=== PATIENT | male | born 1945 | race Caucasian/White ===

== ENCOUNTER 2017-01-25 08:18 | Emergency (ER) | payer MEDICARE, BC ==
[2017-01-25] MEDS ORDERED: MORPHINE SULFATE 4 MG/ML SYRG IM ONE (08:35)
[2017-01-25] MEDS ORDERED: MORPHINE SULFATE 4 MG/ML SYRG ONE (08:39)
--- NOTE | 2017-01-25 08:42 | ERNOTE ---
Lower Extremity HPI - Narrative Date of Service: 01/25/17 - General Lower Extremities Pain: knee: left Time Seen by Provider: 01/25/17 08:29 Source: patient Exam Limitations: no limitations - Immun/Allergies/Home Medications Immunizations: IMMUNIZATION HX Immunizations Up to Date Yes History of Influenza Vaccine No Hx Pneumococcal Vaccination No Allergies/Adverse Reactions: Allergies Allergy/AdvReac Type Severity Reaction Status Date / Time No Known Allergies Allergy Unverified 07/17/15 05:29 Home Medications: HOME MEDICATIONS HYDROcodone/ACETAMINOPHEN [[place] 5-325] 1 each PO Q8H PRN #12 tablet 01/25/17 [ Last Taken Unknown] Omeprazole [Prilosec] 20 mg PO DAILY 01/25/17 [Last Taken Unknown] - History of Present Illness Narrative: Patient presents to the ED for left knee pain. He was walking on Monday and his knee twisted and he heard a "pop". He had pain in the knee and it has gradually worsened since then. No fever. no N/T/W. Hurts to bend it. Once it is straightened it is better but hurts to walk on it. No other injuries. no hip pain. No other compaints. Right now moderate pain. Occurred: other - Monday, 4 days ago Method of Injury: Reports: twisted Loss of Consciousness: Reports: no loss of consciousness Modifying Factors - (Improves): Reports: rest Modifying Factors - (Worsens): Reports: other - bending and walking Associated Symptoms: Reports: popping sensation. Denies: unable to bear weight , weakness Other Injuries: Reports: none Subsequent Symptoms: Denies: sensory loss, numbness, motor loss Prior Treament: Denies: recently seen Review of Systems - Review of Systems Constitutional: Absent: fever Respiratory: Absent: shortness of breath Cardiology: Absent: chest pain Gastrointestinal/Abdominal: Absent: abdominal pain Musculoskeletal: Present: See HPI Skin: Present: other - recent rash on feet seen at [facility] and started on apparent antifungal Neurological: Absent: weakness - Patient's Past Medical History Patient History - Medical: Arthritis, Other Patient History - Cardiac/Respiratory: No pertinent hx Patient History - Cancer: No Hx of Cancer Patient History - Surgical Procedures: Colonoscopy, EGD, Other Patient History - Other: None - Social History Living Situations: home Psych History: No pertinent hx Smoking Status: Never smoker - Immunizations Immunizations Up to Date: Yes Hx Pneumococcal Vaccination: No History of Influenza Vaccine: No Physical Exam - Physical Exam General Appearance: Present: alert, no apparent distress Head Exam: Present: normal inspection Eye Exam: Normal inspection: bilateral Ears, Nose, Throat: Present: normal ENT inspection Neck: Present: normal inspection Respiratory: Present: no respiratory distress, normal breath sounds Cardiovascular/Chest: Present: regular rate, rhythm, normal peripheral pulses Back Exam: Present: normal range of motion Extremity Exam: Present: other - No left hip tenderness. Mild lateral left knee tenderness. Joint effusion noted. No apparnet pattellar tendon injury. No redness or warmth. No gross instability but exam limited by pain. No distal tenderness. Foot warm and well perfused. No suggestion of compartment syndrome or septic arthritis. Neurological Exam: Present: alert, normal mood/affect, no motor/sensory deficits , other - walks wit a cane Skin Exam: Present: normal color, warm/dry, other - no cellulitis ED Progress - Vital Signs Patient's Vital Signs:: I have reviewed the patient's vital signs. Vital Signs: Vital Signs 01/25/17 08:23 Temperature 36.8 C Pulse Rate 102 H Respiratory 16 Rate Blood Pressure 136/83 O2 Sat by Pulse 94 Oximetry - X-Ray X-Ray #1 X-Ray: knee Interpretation: Interp. by me X-ray Comments: I reviewed official x-ray report. - Progress/Reassessment Chief Complaint: Lower Extremity Pain/ Injury Progress Note-Subjective: 01/25/17 09:25 Patient has no findings of septic arthritis or infectious process. I spoke with Dr Cruz, he recommends knee immobilizer and follow-up. He has appt tomorrow with ortho at 1015am. He is agreeable to the plan. I discussed warning signs and reasons to return as well as the need for close f/u. Departure Clinical Impression: Knee injury - Departure Disposition: Home self-care Condition: Stable Instructions: Knee Pain Additional Instructions: Knee immobilizer as directed. You have an appointment with Dr Larios tomorrow at 10:15 am. No driving with pain medication. Ice. Elevation. Return here for fever, redness, increased pain or if your condition worsens or changes in any way. Referrals: Jack Carnes PAC [Primary Care Provider] - Prescriptions: HYDROcodone/ACETAMINOPHEN [[place] 5-325] 1 each PO Q8H PRN #12 tablet PRN Reason: Pain
[2017-01-25 09:07] VITALS: BP 135/86
== END 2017-01-25 09:30 | disposition home or self-care (01) ==
LOC: ER 08:18
PROC: 2W3MX1Z Immobilization of Left Lower Extremity using Splint (ICD-10-PCS; principal; 2017-01-25)
DX: S89.92XA Unspecified injury of left lower leg, initial encounter (principal); X50.1XXA Overexertion from prolonged static or awkward postures, initial encounter; Y93.01 Activity, walking, marching and hiking

== ENCOUNTER 2017-03-08 06:46 | Inpatient (IN) | payer MEDICARE, BC ==
[~2017-03-08 06:46] MED LIST: MORPHINE SULFATE 15 MG TABLET.SA PO PRN; RINGER'S SOLUTION,LACTATED 1,000 ML IV PRN; ROPIVACAINE HCL/PF 100 MG, KETOROLAC TROMETHAMINE 30 MG, EPINEPHrine 0.2 MG in NORMAL S... IJ PRN; TRANEXAMIC ACID 1,000 MG in NORMAL SALINE 100 ML IV PRN; ceFAZolin SODIUM 1 GM VIAL IV PRN
[2017-03-08] MEDS ORDERED: LORazepam 2 MG/ML DISP.SYRIN IV ONE (08:15)
--- NOTE | 2017-03-08 09:16 | PREOP NOTE ---
Preoperative Progress Note - Preoperative Changes Changes to Preop Condition?: No Changes
--- NOTE | 2017-03-08 09:20 | PN ---
Subjective - Date and Time Seen Date: 03/08/17 Time: 08:15 Subjective Narrative: laying in bed. anxious about upcoming surgery today. asked pt etoh use, pt states "3-5 beers a day since [place].". Pleasant and cooperative. mild tremor noted. last etoh on monday afternoon 03/06/17. Objective - Review of Systems Generalized/Overall Review: Reports: No Symptoms Reported EENTM: Reports: No Symptoms Reported Respiratory: Reports: No Symptoms Reported Cardiac: Reports: No Symptoms Reported Abdominal: Reports: No Symptoms Reported Genitourinary Symptoms: Reports: No Symptoms Reported Musculoskeletal Complaints: Reports: No Symptoms Reported Neurological: Reports: Anxiety Skin: Reports: No Symptoms Reported Endocrine: Reports: No Symptoms Reported Misc: All systems neg except as marked - Vitals Vitals: Last Vital Signs Temp 36.7 C 03/08/17 07:05 Pulse 96 03/08/17 07:05 Resp 18 03/08/17 07:05 BP 142/87 03/08/17 07:05 Pulse Ox 98 03/08/17 07:05 - Exam Constitutional: Present: Alert, Oriented x3, Cooperative ENT Exam: Present: hearing grossly normal Neck: Present: supple Breasts: Present: Exam deferred Respiratory: Present: lungs clear, normal breath sounds Cardiovascular/Chest: Present: normal peripheral pulses, regular rate, rhythm, no chest tenderness Abdomen: Present: soft, nontender, nondistended /Rectal: Present: Exam deferred Extremity: Present: non-tender, normal inspection Skin Exam: Present: warm/dry, no cyanosis, pallor Cauti Physician Documentation - Urinary Catheter Management Urethral (Rees) Date of Insertion: 03/08/17 Time of Insertion: 10:15 Assessment/Plan Plan Narrative: Plan for left total knee today. Ortho following, appreciate their help. will order etoh withdrawal protocol post op. anesthesia / surgeon notified of etoh abuse. use ativan post op as needed for any s/s of withdrawal. this was discussed with patient and his family. monitor closely post op. - Problems/Diagnosis (1) DJD (degenerative joint disease) of knee Problem: Chronic Qualifiers: Osteoarthritis type: unspecified Laterality: left Qualified Code(s): M17.12 - Unilateral primary osteoarthritis, left knee (2) ETOH abuse Problem: Chronic (3) GERD (gastroesophageal reflux disease) Problem: Chronic Qualifiers: Esophagitis presence: esophagitis presence not specified Qualified Code(s) : K21.9 - Gastro-esophageal reflux disease without esophagitis
[2017-03-08] MEDS ORDERED: RINGER'S SOLUTION,LACTATED 1,000 ML IV ONE ×2 (09:50→10:45)
[2017-03-08] MEDS ORDERED: HYDROmorphone HCL 1 MG/ML DISP.SYRIN IV PRN (11:59)
[2017-03-08] MEDS ORDERED: ONDANSETRON HCL/PF 2 MG/ML VIAL IV PRN (11:59)
[2017-03-08] MEDS ORDERED: MAGNESIUM HYDROXIDE 30 ML UDC PO PRN (11:59)
[2017-03-08] MEDS ORDERED: MAG HYDROX/ALUMINUM HYD/SIMETH 30 ML UDC PO PRN (11:59)
[2017-03-08] MEDS ORDERED: PROMETHAZINE HCL 5 MG in DEXTROSE 5 % IN WATER 50 ML IV PRN ×2 (11:59)
[2017-03-08] MEDS ORDERED: ACETAMINOPHEN 500 MG TABLET PO PRN (11:59)
[2017-03-08] MEDS ORDERED: DEXTROSE 5%-LACTATED RINGERS 1,000 ML IV PRN (11:59)
[2017-03-08] MEDS ORDERED: diphenhydrAMINE HCL 50 MG/ML VIAL IV PRN (11:59)
[2017-03-08] MEDS ORDERED: ZOLPIDEM TARTRATE 5 MG TABLET PO PRN (11:59)
[2017-03-08] MEDS ORDERED: CLOTRIMAZOLE/BETAMET DIPROP 15 APPL TUBE TP PRN (12:00)
[2017-03-08] MEDS ORDERED: ENOXAPARIN SODIUM 40 MG/0.4 ML SYRG SC SCH (12:15)
--- NOTE | 2017-03-08 12:15 | OR ---
Operative Report - Dictated Report Narrative: Date: 03/08/2017 Preoperative diagnosis: Left Knee degenerative joint disease. Postoperative diagnosis: Left Knee degenerative joint disease. Procedure: Left Total knee arthroplasty. Surgeon: Mazin Larios M.D. Horser Up: Jack Carnes PA-C Anesthesia: Spinal with regional block and local periarticular joint injection. Complications: None Specimens: Bone for disposal. Estimated blood loss: Minimal. Tourniquet time: 90 Minutes at 325 millimeters of mercury. Retained implants: Depuy Attune size 8 left lugged cemented posterior stabilized femoral component. Size 8 fixed-bearing cemented tibial platform. 8 by 6 millimeter posterior stabilized cross-linked tibial insert. 38 millimeter medialized patella button. Indications: Mr. Colon is a 72-year-old gentleman who has had long-standing left knee pain and arthrosis. This patient was followed in my clinic for period of time with significant complaints of left knee pain consistent with arthritic changes. He had failed conservative measures including, but not limited to, activity modification, passage of time, medications, and other conservative measures. Patient wished to proceed with surgical treatment. The risks, benefits, and alternatives were discussed in clinic. The risks of , blood clots, bleeding, infection, nerve/tendon blood vessel/ injury, malposition of components, intraoperative fracture, postoperative limited range of motion, persistent pain, failure of components, and need for additional procedures. Patient wished to proceed consent was obtained after answering all questions. Procedure: After marking the correct extremity on the floor, the patient was taken to the operating room. A timeout was performed. IV antibiotics consisting of Ancef were administered prior to the procedure. A regional followed by spinal anesthetic was induced by anesthesia, per my request, on the operative table with all bony prominences well-padded. Rees catheter was placed, and a bump was placed under the operative side buttock. SCDs and MARISOL hose were utilized on the nonoperative leg. A well-padded tourniquet was applied to the operative thigh. The operative leg was then pre-scrubbed with alcohol prepped, and draped in a standard sterile fashion. After exsanguinating the extremity with an Esmarch bandage, the tourniquet was inflated. After marking out the anterior knee for standard incision centered over the patella, the skin was incised and dissected down to the joint retinaculum. The joint retinaculum was marked out as well as the horizontal axis of the patella, and a standard medial parapatellar arthrotomy was then made. The most proximal aspect of the quadriceps tendon and the patella tendon insertion were protected from release. A partial synovectomy was performed as well as a resection of the infrapatellar fat pad. The distal femoral fat pad proximal to the trochlea was also resected using cautery. The soft tissues were elevated off the medial aspect of the proximal tibia using a Minor elevator ensuring that we did not transect the medial collateral ligament. Upon initial evaluation range of motion was approximately 10 degrees to 120 degrees of flexion. There were signs of advanced arthrosis in the medial, lateral, and patellofemoral joint spaces. There were large marginal osteophytes which were removed with a rongeur. The knee was hyperflexed and the patella was tucked laterally. Protecting the surrounding soft tissues with Homans, an entry drill was placed down the femoral canal using Whitesides line for guidance into the entry point. The intramedullary femoral alignment darvin was utilized in order to cut the distal femur in 5 degrees of valgus resecting 10 millimeters of bone. Next the distal femur was sized to a size 8. A posterior referencing guide was utilized to place the distal femoral cutting block in 3 degrees of external rotation. This was pinned into place. The rotation was confirmed both visually and based on anatomic landmarks. The 4 in 1 cutting jig of the appropriate size was utilized in order to make all bony cuts. The angle wing was used to ensure no notching. Retractors were utilized in order to protect surrounding soft tissues. This cut did not result in any excessive notching. We then cut the box centered over the distal femur. This allowed for resection of the anterior and posterior cruciate ligaments. I then turned my attention to the preparation of the tibia. Using an extra medullary tibial alignment darvin, 1 millimeters of bone was resected off the medial articular surface. This was made perpendicular to the mechanical axis of the joint with the alignment darvin centered over the ankle mortise. The alignment darvin was checked and was noted to be parallel to the mechanical axis, centered over the medial one third of the tibial tubercle, paralleling the anterior surface of the tibia. We then turned our attention to the remaining meniscus and soft tissues. These were removed while protecting the surrounding ligaments and soft tissues. The marginal osteophytes off the anterior, posterior, medial, lateral aspects of the femur and tibia were removed. The tibia was sized out to a size 8. Next the tibia was drilled and punched in an externally rotated position. Next the trial femur and a series of tibial inserts were utilized in order to allow for full extension and maximal flexion. It was found that a 6 millimeter insert gave the best range of motion and stability at multiple flexion points as well as at full extension there was less than 2 mm of gapping both medially and laterally. There is minimal anterior translation with the knee at 90 degrees of flexion and no signs of being able to dislocate the knee. The patella was then prepared. The initial thickness was 25 millimeters. This was reamed down to 15 millimeters parallel to the anterior surface of the patella. It was sized out to a size 38 medialized patella button. This was then drilled and trialed. Without any medial restraint the patella tracked appropriately and did not sublux or dislocate. At this point, it was felt these were the appropriate sized implants, and all trials were removed. The standard periarticular joint injection consisting of ropivacaine, Toradol, and epinephrine were injected into the periarticular joint tissues. The bony surfaces were thoroughly irrigated with a pulsatile- suction saline irrigation device. A bone plug from the prior resected anterior chamfer cut was placed into the drill hole at the distal femur. The bony surfaces were then dried in preparation for placement of the implants. The cement was vacuum mixed per the sap technical developer's instructions. The cement was placed on the dry bony surfaces and posterior aspect of the implants. The implants were impacted into place, removing all extruded cement. At this point anesthesia administered tranexamic acid per protocol intravenously. The knee was placed in extension with axial loading with the trial insert while the cement cured. Once the cement cured, all remaining extruded cement was removed. The knee was placed through a range of motion with the trial insert to ensure appropriate range of motion and stability. Final range of motion was approximately 0 to 120 degrees. The knee was again thoroughly irrigated with pulsatile saline lavage. The final polyethylene insert was then impacted into place ensuring no retained soft tissues. The remaining periarticular joint injection was injected. A medium Hemovac drain was placed exiting superior laterally. The knee was then placed over a triangle and the arthrotomy was closed with interrupted #1 Vicryl after thoroughly irrigating the joint. The deep and subcutaneous tissues were closed with interrupted 0 and 3-0 Vicryl respectively. Skin was closed with a running subcutaneous 3-0 Monocryl and Prineo Dermabond dressing. 4 x 4's, Sof-Rol, and a full leg Monty wrap were applied. All sponge, needle, blade, and instrument counts were correct prior to closing the wounds. Postoperative condition: The patient was awoken and transferred to the postanesthesia care unit in stable condition. Plan is to be admitted to the inpatient medical/surgical floor postoperatively for 24 hours of IV antibiotics , physical therapy, occupational therapy, and medical comanagement. Patient will be weightbearing as tolerated with range of motion as tolerated. DVT prophylaxis will be with SCDs, MARISOL hose, and pharmacological anticoagulation. Anticipated hospital stay is approximately 2-4 days.
--- NOTE | 2017-03-08 12:25 | OR ---
Anesthesia Procedure Note - Anesthesia Procedure Note Date of Service: 03/08/17 Narrative: Vital Signs - Last Taken Temp 36.3 C L 03/08/17 12:15 Pulse 78 03/08/17 12:15 Resp 14 03/08/17 12:15 BP 116/76 03/08/17 12:15 Pulse Ox 97 03/08/17 12:15 O2 Oxygen Delivery Method Room Air 03/08/17 12:23 ANESTHESIA PROCEDURE NOTE Date of Procedure: 03/08/2017. Time of procedure: 949. Performed by: Charlie Ruiz CRNA Research Program Assistant: None. Preprocedure diagnosis: Left total knee arthroplasty. Post procedure diagnosis: Same. Procedure: Left ultrasound guided femoral block for postoperative analgesia. Indications: The patient is a 72 -year-old male who is consulted for a left ultrasound-guided femoral nerve block for postoperative analgesia related to left total knee arthroplasty. Findings: See below. Details of the procedure: The tissue over the intended target site was cleansed with ChloraPrep. 1 ml Lidocaine 1 % was infiltrated to the skin and subcutaneous tissue. Under sterile technique and ultrasound guidance a 21-gauge block needle was inserted anterior to the left femoral nerve . 30 mL's of 0.5% bupivacaine plus epinephrine 1 200,000 was injected after negative aspiration for blood. Spread of local anesthetic surroundind the femoral nerve was observed throughout the injection with ultrasound. The needle was removed intact. No complications were noted. The images were retained in the Hospital medical database . EBL: Minimal. Fluids: N/A. Specimen: N/A. Post procedure condition: The patient tolerated the procedure well. No complications were noted. Thank you for this consultation. Charlie Ruiz CRNA
[2017-03-08] MEDS: KETOROLAC TROMETHAMINE 15 MG/ML VIAL IV SCH ×3 (13:03→23:34)
[2017-03-08] MEDS ORDERED: LORazepam 2 MG/ML DISP.SYRIN IV PRN ×3 (13:07)
[2017-03-08] MEDS ORDERED: MULTIVIT INFUSN,ADULT 4,VIT K 10 ML, THIAMINE HCL 100 MG in NORMAL SALINE 1,000 ML IV ONE (13:07)
[2017-03-08] MEDS: FOLIC ACID 1 MG TABLET PO SCH (13:39)
[2017-03-08] MEDS: ceFAZolin SODIUM 1 GM in DEXTROSE 5 % IN WATER 100 ML IV SCH ×4 (13:39→20:06)
[2017-03-08] MEDS: THIAMINE HCL 100 MG TABLET PO SCH (13:39)
[2017-03-08 13:40] LABS: Magnesium 1.7 mg/dL (1.2-2.8); Phosphorus 4.2 mg/dL (2.2-4.2)
[2017-03-08] MEDS: MULTIVITAMINS 1 CAP CAPSULE PO SCH (14:17)
[2017-03-08] MEDS: MAGNESIUM OXIDE 400 MG TABLET PO SCH ×2 (14:18→20:06)
[2017-03-08] MEDS: SENNOSIDES/DOCUSATE SODIUM 1 TAB TABLET PO SCH (20:06)
[2017-03-08] MEDS: MORPHINE SULFATE 15 MG TABLET.SA PO SCH (20:06)
[2017-03-09] MEDS: ceFAZolin SODIUM 1 GM in DEXTROSE 5 % IN WATER 100 ML IV SCH ×2 (01:47)
[2017-03-09] MEDS: oxyCODONE HCL/ACETAMINOPHEN 1 TAB TABLET PO PRN ×2 (05:16→17:53)
[2017-03-09] MEDS: KETOROLAC TROMETHAMINE 15 MG/ML VIAL IV SCH ×4 (05:16→23:40)
[2017-03-09 05:44] LABS: Hematocrit 38.8 % (42.0-52.0); Hemoglobin 12.8 gm/dL (13.5-18.0); Mean Cell Volume 92.2 fl (78-100); Mean Corpuscular Hemoglobin 30.4 pg (27-31); Mean Platelet Volume 9.2 fl (6.0-9.5); Platelet Count 106 K/mm3 (150-450); Red Blood Count 4.21 M/mm3 (4.7-6.0); Red Cell Distribution Width 14.2 % (11.5-14.0); White Blood Count 5.1 K/mm3 (4.0-10.5)
[2017-03-09 05:54] LABS: Anion Gap 10.9 mmol/L (6.8-13.8); BUN/Creatinine Ratio 12.7 (9.0-21.6); Calcium * 8.2 mg/dL (7.9-10.9); Carbon Dioxide 28.9 mmol/L (24-32.6); Estimated Creat Clear 94.1; Potassium 3.8 mmol/L (3.4-4.6)
[2017-03-09] MEDS: PANTOPRAZOLE SODIUM 20 MG TABLET.DR PO SCH (07:08)
--- NOTE | 2017-03-09 08:04 | PN ---
Subjective - Date and Time Seen Date: 03/09/17 Time: 08:02 Subjective Narrative: Subjective: Reports no concerns. He had some difficulty sleeping. Was able to get to the chair with therapy. Pain is well-controlled. Voiding without any complications. Tolerating by mouth intake. Denies any nausea or vomiting. Denies calf pain. Physical exam: Alert and oriented to person, place and time Left lower Extremity: Palpable dorsalis pedis pulse. Sensation grossly intact to light touch. Dressings clean and dry. Able to flex and extend ankle and toes. No excessive drainage. Calf and thigh are soft and nontender. Assessment: Postop day 1 status post left total knee arthroplasty. Plan: Continue with physical and occupational therapy weightbearing as tolerated. Continue with anticoagulation. 24 hours postoperative prophylactic antibiotics. Pain control with goal to rely on oral medications. Continue bowel regimen. Will need 6 weeks with walker or assitive device to protect joint while ambulating during the recovery process. Discharge planning. Discontinue drain and Rees catheter. Repeat labs in a.m. Objective - Vitals Vitals: Last Vital Signs Temp 37 C 03/09/17 06:59 Pulse 70 03/09/17 06:59 Resp 18 03/09/17 06:59 BP 145/83 03/09/17 06:59 Pulse Ox 96 03/09/17 06:59 - Abnormal Lab Findings Abnormal Lab Findings: Abnormal Lab Results 03/09/17 03/09/17 Range/Units 05:30 05:30 RBC 4.21 L (4.7-6.0) M/mm3 Hgb 12.8 L (13.5-18.0) gm/dL Hct 38.8 L (42.0-52.0) % RDW 14.2 H (11.5-14.0) % Plt Count 106 L (150-450) K/mm3 Random Glucose 124 H (70-110) mg/dL Cauti Physician Documentation - Urinary Catheter Management Urethral (Rees) Date of Insertion: 03/08/17 Time of Insertion: 10:15 Date of Removal: 03/09/17 Time of Removal: 07:05 Assessment/Plan - Problems/Diagnosis (1) Acute blood loss anemia Problem: Acute (2) Status post total left knee replacement Problem: Acute (3) ETOH abuse Problem: Chronic (4) GERD (gastroesophageal reflux disease) Problem: Chronic Qualifiers: Esophagitis presence: esophagitis presence not specified Qualified Code(s) : K21.9 - Gastro-esophageal reflux disease without esophagitis
[2017-03-09] MEDS: THIAMINE HCL 100 MG TABLET PO SCH (08:46)
[2017-03-09] MEDS: MORPHINE SULFATE 15 MG TABLET.SA PO SCH ×2 (08:46→20:05)
[2017-03-09] MEDS: FOLIC ACID 1 MG TABLET PO SCH (08:46)
[2017-03-09] MEDS: MAGNESIUM OXIDE 400 MG TABLET PO SCH ×2 (08:46→20:05)
[2017-03-09] MEDS ORDERED: BISACODYL 5 MG TABLET.DR PO ONE (08:53)
--- NOTE | 2017-03-09 08:56 | PN ---
Subjective - Date and Time Seen Date: 03/09/17 Time: 08:53 Subjective Narrative: sitting in bed. tiny hand tremor. pleasant and cooperative with staff. denies cp/dyspnea/nausea/vomiting. c/o constipation. Objective - Review of Systems Generalized/Overall Review: Reports: Fatigue. Denies: Chills, Fever EENTM: Reports: No Symptoms Reported Respiratory: Reports: No Symptoms Reported Cardiac: Reports: No Symptoms Reported Abdominal: Reports: No Symptoms Reported Genitourinary Symptoms: Reports: No Symptoms Reported Musculoskeletal Complaints: Reports: No Symptoms Reported Neurological: Reports: No Symptoms Reported Skin: Reports: No Symptoms Reported Endocrine: Reports: No Symptoms Reported Misc: All systems neg except as marked - Vitals Vitals: Last Vital Signs Temp 37 C 03/09/17 06:59 Pulse 70 03/09/17 06:59 Resp 18 03/09/17 06:59 BP 145/83 03/09/17 06:59 Pulse Ox 96 03/09/17 06:59 - Abnormal Lab Findings Abnormal Lab Findings: Abnormal Lab Results 03/09/17 03/09/17 Range/Units 05:30 05:30 RBC 4.21 L (4.7-6.0) M/mm3 Hgb 12.8 L (13.5-18.0) gm/dL Hct 38.8 L (42.0-52.0) % RDW 14.2 H (11.5-14.0) % Plt Count 106 L (150-450) K/mm3 Random Glucose 124 H (70-110) mg/dL - Exam Constitutional: Present: Alert, Cooperative, No distress ENT Exam: Present: hearing grossly normal Neck: Present: full range of motion, supple Breasts: Present: Exam deferred Respiratory: Present: lungs clear, normal breath sounds Cardiovascular/Chest: Present: normal peripheral pulses, regular rate, rhythm Abdomen: Present: soft, nontender, nondistended /Rectal: Present: Exam deferred Extremity: Present: normal inspection - right, leg pain - left Skin Exam: Present: normal color, warm/dry, no cyanosis Cauti Physician Documentation - Urinary Catheter Management Urethral (Zaldivar) Date of Insertion: 03/08/17 Time of Insertion: 10:15 Date of Removal: 03/09/17 Time of Removal: 07:05 Assessment/Plan Plan Narrative: POD #1 LTKA - ortho following etoh withdrawal in place - mild tremor noted. pleasant and cooperative with staff. use ativan as needed for any withdrawal symptoms. VSS. c/o constipation - add a dose of dulcolax po x1. significant output via hemovac drain overnight - follow h/h. labs stable this am. anticoagulation per ortho. pain controlled with oral pain medications. zaldivar d/c this am. will continue to follow. - Problems/Diagnosis (1) DJD (degenerative joint disease) of knee Problem: Chronic Qualifiers: Osteoarthritis type: unspecified Laterality: left Qualified Code(s): M17.12 - Unilateral primary osteoarthritis, left knee (2) ETOH abuse Problem: Chronic (3) GERD (gastroesophageal reflux disease) Problem: Chronic Qualifiers: Esophagitis presence: esophagitis presence not specified Qualified Code(s) : K21.9 - Gastro-esophageal reflux disease without esophagitis
[2017-03-09] MEDS: ENOXAPARIN SODIUM 40 MG/0.4 ML SYRG SC SCH (12:24)
[2017-03-09] MEDS: MULTIVITAMINS 1 CAP CAPSULE PO SCH (15:27)
[2017-03-09] MEDS: SENNOSIDES/DOCUSATE SODIUM 1 TAB TABLET PO SCH (20:05)
[2017-03-10] MEDS: KETOROLAC TROMETHAMINE 15 MG/ML VIAL IV SCH (05:03)
[2017-03-10 05:24] LABS: Hematocrit 33.6 % (42.0-52.0); Hemoglobin 11.2 gm/dL (13.5-18.0); Mean Cell Volume 92.1 fl (78-100); Mean Corpuscular Hemoglobin 30.7 pg (27-31); Mean Corpuscular Hgb Conc 33.3 g/dl (32-36); Mean Platelet Volume 10.5 fl (6.0-9.5); Platelet Count 103 K/mm3 (150-450); Red Blood Count 3.65 M/mm3 (4.7-6.0)
[2017-03-10 05:28] LABS: BUN/Creatinine Ratio 16.5 (9.0-21.6); Calcium * 8.2 mg/dL (7.9-10.9); Carbon Dioxide 27.5 mmol/L (24-32.6); Estimated Creat Clear 94.1; Potassium 3.5 mmol/L (3.4-4.6)
[2017-03-10] MEDS: PANTOPRAZOLE SODIUM 20 MG TABLET.DR PO SCH (06:27)
[2017-03-10] MEDS: oxyCODONE HCL/ACETAMINOPHEN 1 TAB TABLET PO PRN ×2 (06:27→12:53)
[2017-03-10] MEDS: THIAMINE HCL 100 MG TABLET PO SCH (08:50)
[2017-03-10] MEDS: MULTIVITAMINS 1 CAP CAPSULE PO SCH (08:50)
[2017-03-10] MEDS: MAGNESIUM OXIDE 400 MG TABLET PO SCH (08:50)
[2017-03-10] MEDS: MORPHINE SULFATE 15 MG TABLET.SA PO SCH (08:50)
[2017-03-10] MEDS: FOLIC ACID 1 MG TABLET PO SCH (08:51)
[2017-03-10 10:48] VITALS: BP 138/72
--- NOTE | 2017-03-10 12:11 | DS ---
(1) Acute blood loss anemia Problem: Acute (2) Status post total left knee replacement Problem: Acute (3) ETOH abuse Problem: Chronic (4) GERD (gastroesophageal reflux disease) Problem: Chronic Qualifiers: Esophagitis presence: esophagitis presence not specified Qualified Code(s) : K21.9 - Gastro-esophageal reflux disease without esophagitis Description of Stay: Mr. Colon was admitted to the floor after undergoing left total knee arthroplasty. Tolerated this well. Was admitted to the floor postoperatively for 24 hours of IV antibiotics, pain control, medical comanagement, and occupational and physical therapy. OT and PT were consulted to assist with activities of daily living and ambulation. Was made weightbearing as tolerated with range of motion as tolerated. Pain was initially controlled with IV regimen. This was transitioned to oral once tolerating a by mouth intake. Was resumed on home diet and medications. Had a Rees catheter inserted and the operating room which was discontinued on postoperative day 1. A drain was placed intraoperatively into the knee which was discontinued on postoperative day 1. Lovenox SCD and MARISOL hose were utilized for DVT prophylaxis. Vital signs remained stable to the hospital course. Serial labs were obtained which showed a final hemoglobin of 11.2 grams. BMP was reviewed and was stable. Physical examination throughout the hospital course showed an extremity that had sensation that was intact to light touch, palpable pulses, a benign wound, motor intact to the toes, ankle, and knee. Knee range of motion was approximately 0 degrees to 60 degrees. Once an oral pain regimen was tolerated and physical therapy goals were met, it was felt that they were stable for discharge to home. Instructions: Continue with weightbearing as tolerated and range of motion as tolerated. It is okay to shower and get the wound wet as long as there is no drainage from the wound. Do not bathe or soak the wound. If there is any drainage from the wound keep the wound clean and dry and cover with dry gauze and tape. Change every 2-3 days as needed if there is any drainage. Cover wound while showering if there is any drainage. Continue with physical therapy. Resume home diet. Report any fever over 101.5 Fahrenheit, uncontrolled pain, increased drainage, foul odor of drainage, new or increased calf pain or shortness of breath, or any other significant complaints. A 325mg dialy aspirin will be started after finishing anticoagulation if not allergic. Continue with MARISOL hose on the operative extremity until instructed otherwise. No driving until instructed otherwise. Follow up in approximately 10-14 days. Procedures Performed: see notes below List Procedures: Left total knee arthroplasty Discharge Disposition: Home self care Disposition: Home self-care Condition: Good Discharge Activity: Activity as tolerated, Weight bearing Discharge Diet: General/regular food Jail Therapy: Physicial Therapy Additional Patient Instructions (free text): Follow up with Physical Therapy at [facility] Outpatient on Monday03/13/17 at 10:45am. Follow up in the Orthopedics office with Dr. Larios on 03/23/17@10: 45am. Complete Home Medications List: Complete Home Medication List: Omeprazole [Prilosec] 20 mg PO DAILY 01/25/17 Clotrimazole/Betamet Diprop [Lotrisone Cream] 1 appl TP BID PRN 02/24/17 Enoxaparin Sodium [Lovenox] 40 mg SC Q24H disp.syrin 03/10/17 Morphine Sulfate [Ms Contin] 15 mg PO Q12H tablet.sa 03/10/17 Sennosides/Docusate Sodium [Senokot-S] 2 tab PO HS tablet 03/10/17 oxyCODONE HCL/ACETAMINOPHEN [Percocet 5 MG/325 MG] 2 tab PO Q4H PRN tablet 02/16 Amb Orders for Discharge: PT Evaluation and Treatment Facility: [facility], Location: Rehabilitation Services
[2017-03-10] MEDS: ENOXAPARIN SODIUM 40 MG/0.4 ML SYRG SC SCH (12:47)
== END 2017-03-10 13:30 | disposition home or self-care (01) | DRG 470 ==
LOC: MS 06:46
PROVIDERS: ADMIT Orthopaedic Surgery; ATTEND Orthopaedic Surgery
PROC: 0SRD0J9 Replacement of Left Knee Joint with Synthetic Substitute, Cemented, Open Approach (ICD-10-PCS; principal; 2017-03-08 10:30)
DX: M17.12 Unilateral primary osteoarthritis, left knee (principal); D62 Acute posthemorrhagic anemia; K21.9 Gastro-esophageal reflux disease without esophagitis; F10.10 Alcohol abuse, uncomplicated